=== PATIENT | female | born 1935 | race Two or more races ===

== ENCOUNTER → 2017-02-09 | Outpatient (CLI) | payer MEDICARE, OTHER ==
--- NOTE | 2017-02-10 12:44 | ECHO ---
DATE OF PROCEDURE: 02/09/2017 DATE OF : 1935 AGE: 81 REFERRING PROVIDER: Dr. Eligio Duncan. PATIENT LOCATION: Outpatient. REASON FOR ECHOCARDIOGRAM: Heart murmur, hypertension. 2D MEASUREMENTS: IVS: 1.2 cm LV: 3.7 cm LVPW: 1.2 cm LA: 3.4 cm Aorta: 2.6 cm IVC: 1.0 cm DOPPLER MEASUREMENTS: Peak velocity across the aortic valve: 2.2 m/s Peak velocity across the LVOT: 1.0 m/s Mitral E: 0.83 Mitral A: 0.94 Ratio 0.9 Maximum tricuspid valve velocity: 2.3 m/s 2D COMMENTS: 1. Normal left ventricular size, wall thickness and normal global left ventricular systolic function. Left ventricular systolic ejection fraction is estimated at 65% to 70%. 2. Normal left atrium. Normal right atrium and right ventricle. 3. The atrial septum appeared to be normal without evidence of defect or shunt. 4. Normal aortic root. 5. No pericardial effusion seen. 6. Mildly calcified aortic valve with minimally restricted leaflet motion. Mildly calcified mitral annulus with normal anterior mitral valve leaflet motion. Normal tricuspid valve and pulmonic valve. 7. The inferior vena cava was normal in size, central venous pressure is most likely normal. DOPPLER: It detects mild aortic regurgitation, mild mitral regurgitation, and trace tricuspid regurgitation. The calculated pulmonary artery systolic pressure was normal, less than 30 mmHg. Abnormal relaxation pattern was noted across the mitral valve leaflets as well as the mitral valve annulus consistent with grade 1 left ventricular diastolic dysfunction. IMPRESSION: 1. Normal global left ventricular systolic function. There are features of left ventricular diastolic dysfunction, grade 1. 2. Aortic valve sclerosis with mild aortic regurgitation and mild aortic stenosis. 3. Mitral annulus calcification with mild mitral regurgitation. 4. Trace tricuspid regurgitation with a normal calculated pulmonary artery systolic pressure. [facility]
== END ==
LOC: M CARPUL 08:13
PROVIDERS: ATTEND Family Medicine
DX: R01.1 Cardiac murmur, unspecified (principal); I35.8 Other nonrheumatic aortic valve disorders; I05.8 Other rheumatic mitral valve diseases; I36.8 Other nonrheumatic tricuspid valve disorders